=== PATIENT | male | born 1990 | race Caucasian/White ===

== ENCOUNTER → 2016-10-25 | Day surgery (SDC) | payer OTHER ==
[~2016-10-25] MED LIST: LIDOCAINE 1% INJ-PF (10 MG/ML) 30 ML SDV ONE
--- NOTE | 2016-10-25 14:48 | RADIOLOGY REPORT (SQ) ---
EXAM DESCRIPTION: ARTHRO KNEE INJECTION; FLUORO/NEEDLE PLACEMENT COMPLETED DATE/TIME: 10/25/2016 12:52 pm REASON FOR STUDY: PRPH TEAR OF MEDIAL MENISCUS S83.221A PRPH TEAR OF MEDIAL MENISCUS, CURRENT INJUR Y, R KNE COMPARISON: None. FLUOROSCOPY TIME: 25 seconds Two-view digital radiographic images saved to PACS. LIMITATIONS: None. PROCEDURE: Procedure, risks, benefits and alternatives explained to patient who then gave written c onsent. The right knee was marked and a time-out was called for correct marking verification. Entry site marked using fluoroscopic guidance. Knee prepped and draped using sterile technique. Local a nesthesia achieved using 1% lidocaine injection. 25 gauge needle introduced into the joint space und er direct fluoroscopic visualization. Non-ionic contrast instilled to confirm intra-articular positi on. Dilute gadolinium solution then injected. Needle removed and entry site covered with sterile b andage. No immediate complications noted. TECHNIQUE: Digital images acquired during fluoroscopy and stored on PACS. Patient immediately take n to the MR suite for additional imaging. INJECTION LOCATION: Right knee CONTRAST TYPE AND AMOUNT: 1 mL of Isovue-300 was injected to confirm intra-articular needle placement followed by 30 mL of dilute ProHance gadolinium for MR arthrogram IMPRESSION: SUCCESSFUL NEEDLE PLACEMENT AND INJECTION FOR RIGHT KNEE MR ARTHROGRAM. COMMENT: Quality ID [id number]: Final reports for procedures using fluoroscopy that document radiation exp osure indices, or exposure time and number of fluorographic images (if radiation exposure indices are not available) TECHNICAL DOCUMENTATION: JOB ID: [id number] [facility]- All Rights Reserved
--- NOTE | 2016-10-25 15:08 | RADIOLOGY REPORT (SQ) ---
EXAM DESCRIPTION: MRI RT LOWER JOINT WITH COMPLETED DATE/TIME: 10/25/2016 1:45 pm REASON FOR STUDY: PRPH TEAR OF MEDIAL MENISCUS S83.221A PRPH TEAR OF MEDIAL MENISCUS, CURRENT INJUR Y, R KNE COMPARISON: Plain radiograph. TECHNIQUE: Rightknee images acquired and stored on PACS. Multiplanar images include fat sensitive s equences as T1, water sensitive sequences as FST2 or STIR, cartilage sensitive sequences as FSPD, and gradient echo sequences. Fat sat T1 sequences sensitive to intra-articular contrast. LIMITATIONS: None. FINDINGS: JOINT AND BURSAE: Adequate joint distention. BONE CORTEX AND MARROW: No alteration of signal to suggest marrow replacement. No worrisome bone lesi ons. No occult fracture. ACL: ACL repair. Appears intact. PCL: Intact. MCL: Intact. No periligamentous edema or fluid. LCL: Intact. No periligamentous edema or fluid. MEDIAL MENISCUS: Tiny defect along the inferior surface of the posterior horn of the medial meniscus may represent a minimal flap tear. LATERAL MENISCUS: No tears. No abnormal signal. MEDIAL COMPARTMENT: Cartilage preserved. No bone bruises or reactive marrow edema. No osteophytes. LATERAL COMPARTMENT: Cartilage preserved. No bone bruises or reactive marrow edema. No osteophytes. PATELLA: No chondromalacia. No subchondral cysts. Medial and lateral retinacula intact. EXTENSOR MECHANISM: Intact. Quadriceps and patella tendons normal. SOFT TISSUES: Adjacent muscles and subcutaneous tissues normal. Normal flow void in popliteal artery and vein. OTHER: No other significant finding. IMPRESSION: Tiny flap tear inferior surface posterior horn medial meniscus. ACL repair intact. TECHNICAL DOCUMENTATION: JOB ID: [id number]- All Rights Reserved
== END ==
LOC: RAD 11:48
PROVIDERS: ATTEND Specialist
PROC: BQ07ZZZ Plain Radiography of Right Knee (ICD-10-PCS; principal; 2016-10-25)
DX: S83.221A Peripheral tear of medial meniscus, current injury, right knee, initial encounter (principal); X58.XXXA Exposure to other specified factors, initial encounter
CPT/HCPCS: 73722; 77002; 27370; A9576; J3490